=== PATIENT | male | born 1955 | race Caucasian/White ===

== ENCOUNTER 2017-03-03 06:10 | Day surgery (SDC) | payer OTHER ==
[2017-02-16 12:02] VITALS: BMI 31.3
[2017-03-03] MEDS ORDERED: EPINEPHrine 1:1000 Nasal Sol(30mL) ONE (07:21)
[2017-03-03] MEDS ORDERED: ceFAZolin IV 2 gm in Dextrose 1 GM/50 ML BAG IVPB ONE (07:21)
[2017-03-03] MEDS ORDERED: Lidocaine 2% w Epi 1:100,000 Inj IJ ONE (07:21)
[2017-03-03] MEDS ORDERED: Propofol 10 mg/ml Inj (20 ML) ONE (07:41)
[2017-03-03] MEDS ORDERED: Midazolam 2 MG/2 ML VIAL ONE (07:41)
[2017-03-03] MEDS ORDERED: Lactated Ringer's 1,000 ML IV ONE (07:51)
[2017-03-03] MEDS ORDERED: Succinylcholine Chloride 20 mg/ml Syr (5 ml) IV ONE (08:04)
[2017-03-03] MEDS ORDERED: HYDROmorphone 0.5 mg/0.5 ml ISec IVP PRN (08:42)
[2017-03-03] MEDS ORDERED: Neostigmine Methylsulfate 3mg/3ml Syringe IV ONE (09:16)
[2017-03-03] MEDS ORDERED: Acetaminophen-Codeine 300/30 mg Tab PO PRN (09:26)
[2017-03-03] MEDS ORDERED: Dextrose 5%/0.45% NS 1,000 ML IV SCH (09:30)
[2017-03-03] MEDS ORDERED: HYDROmorphone 0.5 mg/0.5 ml ISec IVP ONE (10:15)
[2017-03-03] MEDS ORDERED: Dextrose 5%/0.45% NS 1,000 ML IV ONE (10:15)
--- NOTE | 2017-03-03 10:35 | OP ---
PROCEDURE DATE: 03/03/2017 PREOPERATIVE DIAGNOSES: Deviated septum, enlarged turbinates, sinusitis. POSTOPERATIVE DIAGNOSES: Deviated septum, enlarged turbinates, sinusitis. PROCEDURE: Endoscopic bilateral maxillary antrostomy, endoscopic bilateral ethmoidectomy, endoscopic bilateral inferior turbinate reduction, septoplasty with navigation. DESCRIPTION OF PROCEDURE: The patient was brought in the room, placed in supine position. Anesthesi a was initiated through an ET tube. Navigation was set up and used throughout the case in order to e nsure that the skull base and orbit were not entered. The adrenaline-soaked pledgets were inserted i n the nasal cavity, left there for 5 minutes and removed. The patient was draped in usual manner. A hemitransfixion incision was made on the left and mucoperichondrial flap was raised. A vertical inc ision was made in the cartilage leaving a 1.5 cm anterior and superior strut and a mucoperichondrial flap was raised on the other side. Deviated portion of the septum removed using forceps and chisel. Next, the anterior portion of the septum was noted to be deviated and scored using a knife in order to make it straight. Quilting suture was used to suture the 2 flaps together and close the hemitrans fixion incision. Next, a 0 degree scope was inserted in the nasal cavity. The inferior turbinates w ere noted to be enlarged and reduced in size, going from an inferior to superior, anterior to posteri or direction on both sides using scissors. Bleeding was controlled using suction cautery. This was done first on the left, then on the right. Attention was turned to the left. The middle turbinate w as injected with lidocaine with epinephrine and medialized. The uncinate process was medialized usin g a [place] elevator and removed using forceps. The ethmoid bulla was entered inferomedially going pos teriorly to the basal lamella, then anteriorly and superiorly until the ethmoid bulla was removed. N ext, the basal lamella was entered. Posterior ethmoid cells were entered and opened. Skull base was identified and followed anteriorly all the way to the area of the anterior ethmoid air cells. Curve d suction was used to locate the maxillary antrum which was noted to be completely stenosed and opene d using forceps. Next, attention was turned to the other side. The middle turbinate was injected wi th lidocaine with epinephrine and medialized. The uncinate process was medialized and removed using forceps. Ethmoid bulla was entered inferomedially using a debrider, going posteriorly to the basal l amella, then anteriorly and superiorly until the ethmoid bulla was removed. Basal lamella was entere d. Posterior ethmoid cells were entered and opened. Skull base was identified and followed anterior ly, all the way to the area of the anterior ethmoid air cells. Curved suction was used to locate the maxillary antrum which was noted to be completely stenosed and opened using forceps. Bleeding was c ontrolled using adrenaline-soaked pledgets. Stents were placed. Splints were placed. The patient w as taken off anesthesia and taken to recovery room in stable manner. Quincy Virgen MD cc: [id number] TT: 03/03/2017 10:34:16 julito
[2017-03-03 12:20] VITALS: PULSE 72
[2017-03-03 12:39] VITALS: BP 133/62; RESP 18; TEMP 97.2; O2SAT 100
== END 2017-03-03 14:59 | disposition home or self-care (01) ==
LOC: C.SDS 06:10
PROVIDERS: ATTEND Otolaryngology
DX: J34.2 Deviated nasal septum (principal); J34.3 Hypertrophy of nasal turbinates; J32.0 Chronic maxillary sinusitis; J32.2 Chronic ethmoidal sinusitis
CPT/HCPCS: 30520; 30802; 31255; 31256; 88304; J0690; J1100; J1170; J2250; J2405; J2704; J2710; J3010; J7042; J7120